=== PATIENT | male | born 1965 | race Two or more races ===

== ENCOUNTER 2022-12-09 07:46 | Emergency (ER) | payer OTHER ==
[~2022-12-09] VITALS: Ht 177.8 cm; Wt 82.8 kg
[2022-12-09 07:53] VITALS: BP 162/116; PULSE 120; RESP 16; TEMP 98.2; O2SAT 98
[2022-12-09] MEDS ORDERED: CHLO25CA10 PO (08:33)
[2022-12-09] MEDS: chlordiazePOXIDE 25mg capsule PO ONE (08:40)
--- NOTE | 2022-12-09 08:42 | NUR ---
CALL PLACED TO [phone] MESSAGE LEFT PER FACILITY REQUEST TO GET RIDE HOME FOR PATIENT
== END 2022-12-09 09:04 | disposition home or self-care (01) ==
LOC: ER 07:46
DX: F10.129 Alcohol abuse with intoxication, unspecified (principal); Z88.1 Allergy status to other antibiotic agents; Z79.899 Other long term (current) drug therapy; Y90.9 Presence of alcohol in blood, level not specified
CPT/HCPCS: 99283